=== PATIENT | female | born 1990 | race Two or more races ===

== ENCOUNTER 2025-06-25 20:20 | Emergency (ER) | payer OTHER ==
[~2025-06-25] VITALS: Ht 165.1 cm; Wt 63.5 kg
[2025-06-25 21:05] LABS: PLATELET COUNT (AUTO) 240 K/uL (150-450); RED BLOOD CELL COUNT(AUTO) 4.20 MIL/uL (4.0-5.2); RED CELL DISTRIBUTION WIDTH 12.5 % (11.5-15.0); WHITE BLOOD COUNT (AUTO) 9.7 K/uL (4.3-11.0)
[2025-06-25 21:07] LABS: APPEARANCE,URINE CLEAR (CLEAR); BLOOD, URINE NEGATIVE Ery/uL (NEGATIVE); LEUKOCYTE ESTERASE ,URINE NEGATIVE (NEGATIVE); NITRITE, URINE NEGATIVE (NEGATIVE); UGLUCOSE NEGATIVE (NEGATIVE)
[2025-06-25 21:09] LABS: PREGNANCY TEST URINE QUAL NEGATIVE (NEGATIVE)
[2025-06-25 21:12] LABS: CALCIUM, SERUM 8.7 mg/dL (8.5-10.1); CREATININE 1.1 mg/dL (0.6-1.3); SODIUM SERUM 136.0 mmol/L (136-145); UREA NITROGEN, BLOOD 18.0 mg/dL (7-18)
[2025-06-25 21:19] LABS: ADD URINE CULTURE YES
[2025-06-25 21:20] LABS: ASPARTATE AMINOTRANSFERASE 18.0 U/L (15-37); TOTAL PROTEIN, SERUM 7.4 g/dL (6.4-8.2)
[2025-06-25] MEDS ORDERED: ACETAMINOPHEN 325 MG TABLET ONE (21:56)
[2025-06-25] MEDS: ACETAMINOPHEN 325 MG TABLET PO ONE (21:56)
[2025-06-25] MEDS ORDERED: ONDANSETRON 4 MG TAB.RAPDIS ONE (21:56)
[2025-06-25] MEDS: ONDANSETRON 4 MG TAB.RAPDIS PO ONE (21:56)
[2025-06-25] MEDS ORDERED: KETOROLAC TROMETHAMINE 15 MG/ML VIAL ONE (21:56)
[2025-06-25] MEDS: KETOROLAC TROMETHAMINE 15 MG/ML VIAL IV ONE (21:57)
[2025-06-25] MEDS ORDERED: IBUP-1953 PO (22:09)
[2025-06-25] MEDS ORDERED: ONDA4TAB5 PO (22:09)
[2025-06-25 22:17] VITALS: BP 122/76; TEMP 98.1; O2SAT 98
== END 2025-06-25 22:17 | disposition home or self-care (01) ==
LOC: ER 20:25
DX: R10.20 Pelvic and perineal pain unspecified side (principal); Z86.018 Personal history of other benign neoplasm
CPT/HCPCS: 36415; 76856-TC; 80048-TC; 80076-TC; 81001; 83690-TC; 84703-TC; 85025-TC; 87086-TC; J1885; Q0162